=== PATIENT | female | born 1995 | race Caucasian/White ===

== ENCOUNTER 2016-05-31 08:56 | Emergency (ER) | payer OTHER ==
[2016-05-31 09:27] LABS: Blood, Urine Negative (Negative); Glucose, Urine (Dipstick) 100 mg/dL (Negative); Ketone, Urine 40 mg/dL (Negative); Nitrite Negative (Negative); Protein, Urine (Dipstick) 100 mg/dL (Neg-Trace); Urobilinogen > or = 8.0 mg/dL (0.2-1.0)
[2016-05-31 09:42] LABS: Bilirubin Negative (Negative)
[2016-05-31 09:43] LABS: RBC/HPF None Seen HPF (0-3)
[2016-05-31 09:44] LABS: Bacteria/HPF 2+ HPF (None Seen)
--- NOTE | 2016-05-31 10:07 | ERRECORD ---
[facility] EMERGENCY RECORD HPI HEMATURIA (:) CHIEF COMPLAINT: Patient presents for evaluation of hematuria. HISTORIAN: History provided by patient, c/o blood in urine, also with whole body aching. LOCATION: No localizing symptoms. SEVERITY: Maximum severity of symptoms mild. TIME COURSE: Gradual onset of symptoms. EXACERBATED BY: Patient's condition exacerbated by nothing. RELIEVED BY: Patient's condition relieved by nothing. ROS (:) CONSTITUTIONAL: Negative constitutional review of systems. EYES: Negative eye review of systems. ENT: Negative ears, nose, throat review of systems. CARDIOVASCULAR: Negative cardiovascular review of systems. RESPIRATORY: Negative respiratory review of systems. GI: Negative gastrointestinal review of systems. GENITOURINARY FEMALE: Negative genitourinary review of systems. MUSCULOSKELETAL: Negative musculoskeletal review of systems. SKIN: Negative skin review of systems. NEUROLOGIC: Negative neurologic review of systems. ENDOCRINE: Negative endocrine review of systems. NOTES: All systems reviewed, negative except as described above. PAST MEDICAL HISTORY (:05 MSPE) MEDICAL HISTORY: Flu vaccine not up to date, Tetanus immunization up to date, Pneumococcal vaccine not up to date, Past medical history includes hematological history, iron deficiency anemia. FEMALE SURGICAL HISTORY: Patient has no surgical history. PSYCHIATRIC HISTORY: Notes: depression and ADHD. SOCIAL HISTORY: Patient denies alcohol use, Patient denies drug use, Patient has no smoking history. KNOWN ALLERGIES No Known Drug Allergies CURRENT MEDICATIONS (09:06 MSPE) Vitamin: TABLET : ORAL Patient Dose: 1 tab(s) Oral once a day. VITAL SIGNS VITAL SIGNS: BP: 117/65, Pulse: 120, Resp: 18, Temp: 96.5 (Oral), Pain: 5, O2 sat: 97 on Room Air, Time: 05/31/2016 09:06. (09:06 MSPE) BP: 118/57, Pulse: 109, Resp: 16, Time: 05/31/2016 09:39. (09:39 MSPE) PHYSICAL EXAM (: SHAN) CONSTITUTIONAL: Patient afebrile, Pulse normal, Blood pressure normal, Respiratory rate normal, Patient appears non toxic, Patient &a-1R&a+25V*p+0X*n4733N*c152B*c15G*c2P*p-0X&a-25V&a+1RName: Taina Ruth DOB: 1995 F20 MedRec: [id number] AcctN: [id number] Prepared: Radha May 31, 2016 10:36 by Interface Page 1 of 3 pMD [facility] EMERGENCY RECORD appears pain free, Patient alert and oriented to person, place and time. HEAD: Head exam included findings of head atraumatic, normocephalic. EYES: Eye exam normal, Eye exam included findings of eyelids normal to inspection, Pupils equally round and reactive to light, Extraocular muscles intact. ENT: ENT exam normal, Pharynx exam normal, Uvula exam normal, Tonsil exam normal. NECK: Neck exam normal, Neck exam included findings of normal range of motion, Trachea midline. RESPIRATORY CHEST: Respiratory and chest exam normal, Chest exam included findings of chest movement symmetrical, Chest expansion equal, Percussion normal. CARDIOVASCULAR: Cardiovascular assessment normal, Cardiovascular exam included findings of heart rate regular rate and rhythm, Heart sounds normal. ABDOMEN FEMALE: Abdominal exam normal, Abdominal exam included findings of abdomen nontender, Bowel sounds normal, Gravid. BACK: Back exam normal. UPPER EXTREMITY: Upper extremity exam normal, Upper extremity exam included findings of inspection normal, Range of motion normal. LOWER EXTREMITY: Lower extremity exam normal, Lower extremity exam included findings of inspection normal, Range of motion normal. NEURO: Neuro exam normal. SKIN: Skin exam normal. PSYCHIATRIC: Psychiatric exam normal, Psychiatric exam included findings of patient oriented to person place and time, Normal affect, Judgment normal, Insight normal. DOCTOR NOTES (09:53 SHAN) TEXT: urine may be infected; culture set up; strept and flu negative; likely with viral infection also that family has had. DATA REVIEWED: Lab data reviewed. PROBLEM LIST No recorded problems DIAGNOSIS (09:54 SHAN) FINAL: PRIMARY: viral illness, ADDITIONAL: urinary tract infection. PRESCRIPTION (09:58 SHAN) Keflex: CAPSULE : 250 mg : ORAL : Quantity: 1 Unit: cap(s) Route: ORAL Schedule: 4 times a day Dispense: 28 Unit: cap(s) May substitute. Refills: No Refills . NOTES: No Refills. DISPOSITION PATIENT: Disposition Type: Discharge, Disposition: *Discharge &a-1R&a+25V*p+0X*c8480Q*c152B*c15G*c2P*p-0X&a-25V&a+1RName: Taina Ruth : 1995 F20 MedRec: [id number] AcctNum: [id number] Prepared: SatMay 31, 2016 10:36 by Interface Page 2 of 3 pMD [facility] EMERGENCY RECORD Home. (09:54 BANDAR) Patient left the department. (10:29 BAILEY) Melendez: BAILEY=LARY Chapman, Alva PORTILLO=MD Tee, Reza &a-1R&a+25V*p+0X*o9666A*c152B*c15G*c2P*p-0X&a-25V&a+1RName: Taina Ruth : 1995 F20 MedRec: [id number] AcctNum: [id number] Prepared: SatMay 31, 2016 10:36 by Interface Page 3 of 3 pMD MTDD
--- NOTE | 2016-05-31 10:13 | PICIS ---
[facility] EMERGENCY RECORD TRIAGE (09:03 MSPE) TRIAGE NOTES: body aches and dizziness since Saturday; also c/o blood in urine. (09:03 MSPE) PATIENT: NAME: Taina Ruth, AGE: 20, GENDER: female, : Sat 1995, TIME OF GREET: Radha May 31, 2016 08:57, PREFERRED LANGUAGE: Indian, ETHNICITY: Not or , ECODE BILLING MAP: [facility], SSN: [id number], Zip Code: [address], KG WEIGHT: 65.32, PHONE: , , , PERSON ID: [id number], PCP: Family Medicine, [place] [facility] and . (09:03 MSPE) COMPLAINT: BODY ACHES,BLOOD IN URINE/7 MON PREG. (09:03 MSPE) ADMISSION: URGENCY: 3 Urgent, ADMISSION SOURCE: Home, TRANSPORT: CAR, BED: ER -03. (09:03 MSPE) LMP: Last menstrual period: 11/28/2015, Estimated conception 12/12/2015, Estimated due date 09/03/2016, Estimated age 26 weeks, 3 days, , P: 1, AB: 0. (09:05 MSPE) TREATMENTS IN PROGRESS: Treatments given Prehospital: none. (09:05 MSPE) PROVIDERS: TRIAGE NURSE: Alva Chapman RN. (09:03 MSPE) PREVIOUS VISIT ALLERGIES: No Known Drug Allergies. (09:03 MSPE) No Known Drug Allergies. (09:05 MSPE) KNOWN ALLERGIES No Known Drug Allergies CURRENT MEDICATIONS (09:06 MSPE) Vitamin: TABLET : ORAL Patient Dose: 1 tab(s) Oral once a day. VITAL SIGNS VITAL SIGNS: BP: 117/65, Pulse: 120, Resp: 18, Temp: 96.5 (Oral), Pain: 5, O2 sat: 97 on Room Air, Time: 05/31/2016 09:06. (09:06 MSPE) BP: 118/57, Pulse: 109, Resp: 16, Time: 05/31/2016 09:39. (09:39 MSPE) NURSING ASSESSMENT: HEAD-TO-TOE (09:08 MSPE) CONSTITUTIONAL: Patient arrives ambulatory, Gait steady, History obtained from patient, Patient appears comfortable, Patient cooperative, Patient alert, Oriented to person, place and time, Skin warm, Skin dry. PAIN: c/o general body aches, Onset of pain 05/27/2016. ENT: Dizziness. RESPIRATORY/CHEST: Breath sounds clear, Associated with cough, Notes: c/o cough and congestion. GENITOURINARY FEMALE: Associated with urinary complaints, hematuria, , per patient, Last menstrual period started on 11/28/15, : 2, Para: 1, Elective abortions: 0, Spontaneous abortions: 0. &a-1R&a+25V*p+0X*w1151S*c152B*c15G*c2P*p-0X&a-25V&a+1RName: Taina Ruth : 1995 F20 MedRec: [id number] AcctNum: [id number] Prepared: [facility] May 31, 2016 10:42 by Interface Page 1 of 6 pMD [facility] EMERGENCY RECORD NURSING PROCEDURE: DISCHARGE NOTE (10:09 MSPE) DISCHARGE: Patient discharged to home, ambulating without assistance, Summary of Care printed/ provided, Discharge instructions given to patient, Simple or moderate discharge teaching performed, Prescriptions given and instructions on side effects given, Above person(s) verbalized understanding of discharge instructions and follow-up care, Patient treated and evaluated by physician. BELONGINGS: Belongings remain with patient. ORDER DETAILS Order Name: Culture, Urine, Status: Active, Time: 09:50 05/31/2016, User: BANDAR, - Ordered for: MD Oliveira Stanley, - Entered by: MD Oliveira Stanley - [facility] May 31, 2016 09:50, - Quantity: 1, Order Name: Influenza A&B Ag Screen, Status: Active, Time: 09:11 05/31/2016, User: BANDAR, - Ordered for: MD Oliveira Stanley, - Entered by: MD Oliveira Stanley - [facility] May 31, 2016 09:11, - Quantity: 1, Order Name: Strep Group A Screen, Status: Active, Time: 09:18 05/31/2016, User: BANDAR, - Ordered for: MD Oliveira Stanley, - Entered by: MD Oliveira Stanley - [facility] May 31, 2016 09:18, - Quantity: 1, Order Name: Urinalysis with Microscopic, Status: Active, Time: 09:08 05/31/2016, User: BANDAR, - Ordered for: MD Oliveira Stanley, - Entered by: MD Oliveira Stanley - [facility] May 31, 2016 09:08, - Quantity: 1. HPI HEMATURIA (: [facility]) CHIEF COMPLAINT: Patient presents for evaluation of hematuria. HISTORIAN: History provided by patient, c/o blood in urine, also with whole body aching. LOCATION: No localizing symptoms. SEVERITY: Maximum severity of symptoms mild. TIME COURSE: Gradual onset of symptoms. EXACERBATED BY: Patient's condition exacerbated by nothing. RELIEVED BY: Patient's condition relieved by nothing. ROS (: [facility]) CONSTITUTIONAL: Negative constitutional review of systems. EYES: Negative eye review of systems. ENT: Negative ears, nose, throat review of systems. CARDIOVASCULAR: Negative cardiovascular review of systems. RESPIRATORY: Negative respiratory review of systems. GI: Negative gastrointestinal review of systems. GENITOURINARY FEMALE: Negative genitourinary review of systems. &a-1R&a+25V*p+0X*i9826Q*c152B*c15G*c2P*p-0X&a-25V&a+1RName: Taina Ruth : 1995 F20 MedRec: [id number] AcctNum: [id number] Prepared: [facility] May 31, 2016 10:42 by Interface Page 2 of 6 pMD [facility] EMERGENCY RECORD MUSCULOSKELETAL: Negative musculoskeletal review of systems. SKIN: Negative skin review of systems. NEUROLOGIC: Negative neurologic review of systems. ENDOCRINE: Negative endocrine review of systems. NOTES: All systems reviewed, negative except as described above. PAST MEDICAL HISTORY (: MSPE) MEDICAL HISTORY: Flu vaccine not up to date, Tetanus immunization up to date, Pneumococcal vaccine not up to date, Past medical history includes hematological history, iron deficiency anemia. FEMALE SURGICAL HISTORY: Patient has no surgical history. PSYCHIATRIC HISTORY: Notes: depression and ADHD. SOCIAL HISTORY: Patient denies alcohol use, Patient denies drug use, Patient has no smoking history. PHYSICAL EXAM (09:12 SHAN) CONSTITUTIONAL: Patient afebrile, Pulse normal, Blood pressure normal, Respiratory rate normal, Patient appears non toxic, Patient appears pain free, Patient alert and oriented to person, place and time. HEAD: Head exam included findings of head atraumatic, normocephalic. EYES: Eye exam normal, Eye exam included findings of eyelids normal to inspection, Pupils equally round and reactive to light, Extraocular muscles intact. ENT: ENT exam normal, Pharynx exam normal, Uvula exam normal, Tonsil exam normal. NECK: Neck exam normal, Neck exam included findings of normal range of motion, Trachea midline. RESPIRATORY CHEST: Respiratory and chest exam normal, Chest exam included findings of chest movement symmetrical, Chest expansion equal, Percussion normal. CARDIOVASCULAR: Cardiovascular assessment normal, Cardiovascular exam included findings of heart rate regular rate and rhythm, Heart sounds normal. ABDOMEN FEMALE: Abdominal exam normal, Abdominal exam included findings of abdomen nontender, Bowel sounds normal, Gravid. BACK: Back exam normal. UPPER EXTREMITY: Upper extremity exam normal, Upper extremity exam included findings of inspection normal, Range of motion normal. LOWER EXTREMITY: Lower extremity exam normal, Lower extremity exam included findings of inspection normal, Range of motion normal. NEURO: Neuro exam normal. SKIN: Skin exam normal. PSYCHIATRIC: Psychiatric exam normal, Psychiatric exam included findings of patient oriented to person place and time, Normal affect, Judgment normal, Insight normal. EVENTS TRANSFER: Triage to Emergency Emergency Room -03. (Radha May 31, &a-1R&a+25V*p+0X*p0455S*c152B*c15G*c2P*p-0X&a-25V&a+1RName: Taina Ruth : 1995 F20 MedRec: [id number] AcctNum: [id number] Prepared: SatMay 31, 2016 10:42 by Interface Page 3 of 6 pMD [facility] EMERGENCY RECORD 2017 09:03 MSPE) Removed from Emergency Emergency Room -03. (10:29 MSPE) DOCTOR NOTES (09:53 SHAN) TEXT: urine may be infected; culture set up; strept and flu negative; likely with viral infection also that family has had. DATA REVIEWED: Lab data reviewed. PROBLEM LIST No recorded problems DIAGNOSIS (09:54 SHAN) FINAL: PRIMARY: viral illness, ADDITIONAL: urinary tract infection. DISPOSITION PATIENT: Disposition Type: Discharge, Disposition: *Discharge Home. (09:54 SHAN) Patient left the department. (10:29 MSPE) INSTRUCTION (:59 SHAN) DISCHARGE: URINARY TRACT INFECTION CYSTITIS FEMALE ADULT, VIRAL SYNDROME (ADULT). FOLLOWUP: Family Medicine, [facility], [facility], [address], [address], [place] [address], [phone]. SPECIAL: 1. rest 2. Tylenol if needed 3. antibiotic four times a day until gone 4. followup with provider in about a week; 5. return here is problem worsens. PRESCRIPTION (:58 SHAN) Keflex: CAPSULE : 250 mg : ORAL : Quantity: 1 Unit: cap(s) Route: ORAL Schedule: 4 times a day Dispense: 28 Unit: cap(s) May substitute. Refills: No Refills . NOTES: No Refills. IMAGING (10:18 MSPE) *DISCHARGE INSTRUCTIONS RECEIPT: Image captured from scanner. *SUPPLY CHARGE SHEET: Image captured from scanner. ADMIN (:) DIGITAL SIGNATURE: MD Tee, Reza. RESULTS MICROBIOLOGY: Influenza A&B Ag Screen: [id number] Collection DT: SatMay 31, 2016 09:40, See comment below , @ ER ROOM#: ER-03 Source: Nasal swab Spec Desc: , &a-1R&a+25V*p+0X*y7065T*c152B*c15G*c2P*p-0X&a-25V&a+1RName: Taina Ruth : 1995 F20 MedRec: [id number] AcctNum: [id number] Prepared: SatMay 31, 2016 10:42 by Interface Page 4 of 6 pMD [facility] EMERGENCY RECORD Influenza A Antigen: NEGATIVE for the , presence of , INFLUENZA A Antigen , Influenza B Antigen: NEGATIVE for the , presence of , INFLUENZA B Antigen , The rapid Flu A&B test can distinguish between influenza A , Influenza A&B Ag Screen See comment below , and B viruses, but it does not differentiate influenza , Influenza A&B Ag Screen See comment below , subtypes. , Influenza A&B Ag Screen See comment below , Influenza A&B Ag Screen See comment below , Influenza A&B Ag Screen See comment below , Influenza A&B Ag Screen See comment below , characteristics of this device with human specimens infected , Influenza A&B Ag Screen See comment below , with the 2008 H1N1 influenza virus have not been , Influenza A&B Ag Screen See comment below , established. For example: this test cannot distinguish , Influenza A&B Ag Screen See comment below , influenza infections caused by novel H1N1 influenza A , Influenza A&B Ag Screen See comment below , viruses versus seasonal influenza A viruses. , Influenza A&B Ag Screen See comment below , , Influenza A&B Ag Screen See comment below , A negative result does not exclude influenza virus , Influenza A&B Ag Screen See comment below , infection; therefore, if more conclusive testing is desired, , Influenza A&B Ag Screen See comment below , follow up confirmatory testing is warranted., Influenza A&B Ag Screen See comment below . (09:43 [facility]) Strep Group A Screen: [id number] Collection DT: SatMay 31, 2016 09:33, See comment below , @ ER ROOM#: ER-03 Source: Throat Spec Desc: PENDING, Strep A Negative CDC recommends , confirmation by , culture on all , negative , Strep negative line 1 Group A , Streptococcus rapid , screens. Please , order , Strep negative line 2 a throat culture if , clinically , indicated. , Rapid Strep Screen:Throat Negative . (09:49 [facility]) LABORATORY: Urinalysis with Microscopic Collection DT: SatMay 31, 2016 09:41, Color Yellow , Range (Yellow), &a-1R&a+25V*p+0X*k4079K*c152B*c15G*c2P*p-0X&a-25V&a+1RName: Taina Ruth : 1995 F20 MedRec: [id number] AcctNum: [id number] Prepared: SatMay 31, 2016 10:42 by Interface Page 5 of 6 pMD [facility] EMERGENCY RECORD Clarity Slightly Cloudy , Range (Clear), Specific [place], Urine 1.030 , Range (1.002-1.036), pH, Urine 6.0 , Range (5.0-9.0), *Leukocyte Large - H , Range (Negative), Nitrite Negative , Range (Negative), *Protein, Urine (Dipstick) 100 - H mg/dL, Range (Neg-Trace), *Glucose, Urine (Dipstick) 100 - H mg/dL, Range (Negative), *Ketone, Urine 40 - H mg/dL, Range (Negative), *Urobilinogen > or = 8.0 - H mg/dL, Range (0.2-1.0), Bilirubin Negative , Range (Negative), , Blood, Urine Negative , Range (Negative), RBC/HPF None Seen HPF, Range (0-3), *WBC/HPF 11-20 - H HPF, Range (0-3), *Squamous Epithelial 7-10 - H HPF, Range (0-3), *Bacteria/HPF 2+ - H HPF, Range (None Seen). (09:49 BANDAR) Melendez: BAILEY=LARY Chapman, Alva PORTILLO=MD Tee, Reza &a-1R&a+25V*p+0X*c5883W*c152B*c15G*c2P*p-0X&a-25V&a+1RName: Taina Ruth : 1995 F20 MedRec: [id number] AcctNum: [id number] Prepared: Radha May 31, 2016 10:42 by Interface Page 6 of 6 pMD MTDD
== END 2016-05-31 10:09 | disposition home or self-care (01) ==
LOC: NAV ERS 08:56
DX: O23.42 Unspecified infection of urinary tract in pregnancy, second trimester (principal); O98.512 Other viral diseases complicating pregnancy, second trimester
CPT/HCPCS: 81001; 87430; 99283

== ENCOUNTER 2018-09-11 20:21 | Emergency (ER) | payer OTHER | END 2018-09-11 20:53 | disposition home or self-care (01) | LOC: NAV ERS 20:21 | DX: M67.431 Ganglion, right wrist (principal); D50.9 Iron deficiency anemia, unspecified; F32.9 Major depressive disorder, single episode, unspecified; F90.9 Attention-deficit hyperactivity disorder, unspecified type | CPT/HCPCS: 99282 ==

== ENCOUNTER 2018-11-26 16:23 | Emergency (ER) | payer OTHER ==
[2018-11-26 17:07] LABS: #Basophils 0.1 thou/uL (0.0-0.2); #Eosinphils 0.1 thou/uL (0.0-0.7); #Lymphocytes 1.7 thou/uL (1.20-3.40); #Monocytes 0.8 thou/uL (0.11-0.59); #Neutrophils 7.9 thou/uL (1.40-6.50); %Basophils 0.8 % (0.0-1.0); %Eosinophils 1.1 % (0.0-10.0); %Lymphocytes 15.8 % (21.0-51.0); %Monocytes 7.7 % (0.0-10.0); %Neutrophils 74.6 % (42.0-75.0); Bilirubin Negative (Negative); Blood, Urine Negative (Negative); Clarity Slightly Cloudy (Clear); Glucose, Urine (Dipstick) Negative (Negative); Hemoglobin 12.3 g/dL (12.0-16.0); Leukocyte Trace (Negative); Mean Corpuscular HGB CONC 32.1 g/dL (32.0-36.0); Mean Corpuscular Volume 84.1 fL (78.0-98.0); Mean Platelet Volume 7.3 fL (7.4-10.4); Nitrite Negative (Negative); Platelet Count 239 thou/uL (130-400); Protein, Urine (Dipstick) Negative (Neg-Trace); RBC Distribution Width 13.6 % (11.5-14.5); Red Blood Cell (RBC) Count 4.54 mill/uL (4.20-5.40); Urobilinogen 0.2 mg/dL (Less than 2); White Blood Cell (WBC) Count 10.6 thou/uL (4.8-10.8)
[2018-11-26] MEDS ORDERED: Lactated Ringer's 1,000 ML ONE (17:09)
[2018-11-26 17:18] LABS: ALT (SGPT) 10 U/L (8-55); AST (SGOT) 18 U/L (5-34); Albumin 3.5 g/dL (3.5-5.0); Alkaline Phosphatase 57 U/L (40-150); Anion Gap 15 mmol/L (10-20); BUN (Urea Nitrogen) 7 mg/dL (7.0-18.7); Bilirubin, Total 0.2 mg/dL (0.2-1.2); Calc. Creatinine Clearance 0 mL/min (70-130); Carbon Dioxide 22 mmol/L (22-29); Chloride 104 mmol/L (98-107); Estimated GFR-MDRD Greater than 90; Globulin 2.9 g/dL (2.4-3.5); Glucose 109 mg/dL (70-105); Potassium 3.5 mmol/L (3.5-5.1); Protein, Total 6.4 g/dL (6.0-8.3); Sodium 137 mmol/L (136-145)
[2018-11-26 17:21] LABS: Bacteria/HPF 1+ HPF (None Seen); RBC/HPF 0-3 HPF (0-3); WBC/HPF 0-3 HPF (0-3)
== END 2018-11-26 17:53 | disposition short-term general hospital (02) ==
LOC: NAV ERS 16:23
DX: O99.89 Other specified diseases and conditions complicating pregnancy, childbirth and the puerperium (principal); R10.9 Unspecified abdominal pain; O99.343 Other mental disorders complicating pregnancy, third trimester; F90.9 Attention-deficit hyperactivity disorder, unspecified type; F32.9 Major depressive disorder, single episode, unspecified; Z3A.28 28 weeks gestation of pregnancy; W19.XXXA Unspecified fall, initial encounter
CPT/HCPCS: 80053; 81003; 81015; 85025; 86900; 86901; J7120

== ENCOUNTER 2019-06-11 12:23 | Emergency (ER) | payer OTHER, SELFPAY ==
[2019-06-11] MEDS ORDERED: Adacel (T-DAP) 0.5 ML SYRINGE ONE (12:48)
== END 2019-06-11 12:58 | disposition home or self-care (01) ==
LOC: NAV ERS 12:23
DX: S61.212A Laceration without foreign body of right middle finger without damage to nail, initial encounter (principal); F32.9 Major depressive disorder, single episode, unspecified; F90.9 Attention-deficit hyperactivity disorder, unspecified type; D50.9 Iron deficiency anemia, unspecified; Z23 Encounter for immunization; W25.XXXA Contact with sharp glass, initial encounter; Y92.009 Unspecified place in unspecified non-institutional (private) residence as the place of occurrence of the external cause
CPT/HCPCS: 12001; 90471; 90715

== ENCOUNTER 2019-12-18 20:33 | Emergency (ER) | payer SELFPAY ==
--- NOTE | 2019-12-18 21:43 | RAD ---
LEFT HIP: 12/18/19 Two views. HISTORY: Fall. FINDINGS: No evidence of fracture. No osseous abnormality identified. IMPRESSION: No acute findings. POS: SYLVESTERW
--- NOTE | 2019-12-18 21:44 | RAD ---
AP PELVIS: 12/18/19 HISTORY: Injury. Pelvis appears intact. No fracture identified. IMPRESSION: No acute fracture. POS: AGW
--- NOTE | 2019-12-18 21:45 | RAD ---
LEFT KNEE: 12/18/19 Four views. HISTORY: Injury. No evidence of fracture. No evidence of joint effusion. IMPRESSION: No acute findings. POS: AGW
[2019-12-18] MEDS ORDERED: traMADol HCl 50 MG TAB ONE (21:49)
[2019-12-18] MEDS ORDERED: Naproxen 500 MG TAB ONE (21:49)
== END 2019-12-18 22:00 | disposition home or self-care (01) ==
LOC: NAV ERS 20:33
DX: S80.02XA Contusion of left knee, initial encounter (principal); M25.552 Pain in left hip; F41.9 Anxiety disorder, unspecified; F17.210 Nicotine dependence, cigarettes, uncomplicated; D50.9 Iron deficiency anemia, unspecified; W01.0XXA Fall on same level from slipping, tripping and stumbling without subsequent striking against object, initial encounter
CPT/HCPCS: 72170

== ENCOUNTER 2023-07-28 11:13 | Emergency (ER) | payer MEDICAID, SELFPAY ==
[2023-07-28] MEDS ORDERED: Prochlorperazine 10 MG/2 ML VIAL ONE (11:41)
[2023-07-28] MEDS ORDERED: diphenhydrAMINE 50 MG/ML VIAL ONE (11:41)
[2023-07-28] MEDS ORDERED: Sodium Chloride 0.9% 250 ML 250 ML ONE (11:41)
[2023-07-28 11:51] LABS: #Basophils 0.1 thou/uL (0.0-0.2); #Eosinphils 0.1 thou/uL (0.0-0.7); #Lymphocytes 1.5 thou/uL (1.20-3.40); #Monocytes 0.7 thou/uL (0.11-0.59); #Neutrophils 4.8 thou/uL (1.40-6.50); %Basophils 1.2 % (0.0-1.0); %Eosinophils 1.5 % (0.0-10.0); %Lymphocytes 20.7 % (21.0-51.0); %Monocytes 9.4 % (0.0-10.0); %Neutrophils 67.2 % (42.0-75.0); Hemoglobin 11.9 g/dL (12.0-16.0); Mean Corpuscular Hemoglobin 25.7 pg (27.0-31.0); Mean Corpuscular Volume 80.3 fl (78.0-98.0); Mean Platelet Volume 7.3 fL (7.4-10.4); Platelet Count 279 10x3/uL (130-400); RBC Distribution Width 13.9 % (11.5-14.5); Red Blood Cell (RBC) Count 4.61 mill/uL (4.20-5.40); White Blood Cell (WBC) Count 7.2 10x3/uL (4.8-10.8)
[2023-07-28 12:13] LABS: ALT (SGPT) 11 U/L (8-55); AST (SGOT) 15 U/L (5-34); Albumin 4.1 g/dL (3.5-5.0); Alkaline Phosphatase 55 U/L (40-110); Anion Gap 12 mmol/L (10-20); BUN (Urea Nitrogen) 9 mg/dL (7.0-18.7); Bilirubin, Total 0.8 mg/dL (0.2-1.2); Calc. Creatinine Clearance 0 mL/min (70-130); Calcium 8.9 mg/dL (7.8-10.44); Carbon Dioxide 25 mmol/L (22-29); Chloride 104 mmol/L (98-107); Estimated GFR 124; Globulin 3.1 g/dL (2.4-3.5); Glucose 91 mg/dL (70-105); Potassium 3.6 mmol/L (3.5-5.1); Protein, Total 7.2 g/dL (6.0-8.3); Sodium 137 mmol/L (136-145)
[2023-07-28 12:35] LABS: Influenza A by NAA Not Detected (NotDetected); Influenza B by NAA Not Detected (NotDetected); SARS-CoV-2 NAA Rapid Test Not Detected (NotDetected)
== END 2023-07-28 13:30 | disposition home or self-care (01) ==
LOC: NAV ERS 11:13
DX: K92.0 Hematemesis (principal); F17.210 Nicotine dependence, cigarettes, uncomplicated
CPT/HCPCS: 80053; 85025; 96365; 96375; J0780; J1200; J7050

== ENCOUNTER 2023-11-20 09:40 | Emergency (ER) | payer OTHER ==
[2023-11-20] MEDS ORDERED: Ibuprofen 800 MG TAB ONE (10:05)
== END 2023-11-20 10:08 | disposition home or self-care (01) ==
LOC: NAV ERS 09:40
DX: M54.6 Pain in thoracic spine (principal); F17.210 Nicotine dependence, cigarettes, uncomplicated
CPT/HCPCS: 99283

== ENCOUNTER 2024-02-04 07:20 | Emergency (ER) | payer OTHER | END 2024-02-04 08:41 | disposition home or self-care (01) | LOC: NAV ERS 07:20 | DX: J02.9 Acute pharyngitis, unspecified (principal); F17.210 Nicotine dependence, cigarettes, uncomplicated | CPT/HCPCS: 87081; 87430; 99283 ==

== ENCOUNTER 2024-03-03 14:14 | Emergency (ER) | payer OTHER, SELFPAY ==
[~2024-03-03 14:14] MED LIST: Iopamidol 370 76% 100 ML VIAL ONE
[2024-03-03] MEDS ORDERED: Ketorolac Tromethamine 30 MG (1 mL) VIAL ONE (14:52)
[2024-03-03 15:02] LABS: #Basophils 0.1 thou/uL (0.0-0.2); #Eosinophils 0.2 thou/uL (0.0-0.7); #Lymphocytes 1.9 thou/uL (1.20-3.40); #Monocytes 1.1 thou/uL (0.11-0.59); #Neutrophils 7.8 thou/uL (1.40-6.50); %Basophils 0.7 % (0.0-1.0); %Eosinophils 1.5 % (0.0-10.0); %Lymphocytes 17.2 % (21.0-51.0); %Monocytes 9.6 % (0.0-10.0); Hematocrit 40.5 % (36.0-47.0); Hemoglobin 13.3 g/dL (12.0-16.0); Mean Corpuscular HGB CONC 32.9 g/dL (32.0-36.0); Mean Corpuscular Hemoglobin 27.5 pg (27.0-31.0); Mean Corpuscular Volume 83.6 fl (78.0-98.0); Mean Platelet Volume 7.5 fL (7.4-10.4); Platelet Count 356 10x3/uL (130-400); RBC Distribution Width 12.2 % (11.5-14.5); Red Blood Cell (RBC) Count 4.85 mill/uL (4.20-5.40)
[2024-03-03 15:57] LABS: Anion Gap 16 mmol/L (10-20); BUN (Urea Nitrogen) 13 mg/dL (7.0-18.7); Calc. Creatinine Clearance 0 mL/min (70-130); Calcium 9.9 mg/dL (7.8-10.44); Carbon Dioxide 23 mmol/L (22-29); Chloride 103 mmol/L (98-107); Estimated GFR 120; Glucose 84 mg/dL (70-105); Potassium 3.2 mmol/L (3.5-5.1); Sodium 139 mmol/L (136-145)
[2024-03-03] MEDS ORDERED: fentaNYL 50 mcg/mL 1 mL Vial ONE (16:45)
== END 2024-03-03 16:05 | disposition home or self-care (01) ==
LOC: NAV ERS 14:14
DX: K04.7 Periapical abscess without sinus (principal); F17.210 Nicotine dependence, cigarettes, uncomplicated
CPT/HCPCS: 70487; 80048; 85025; 96374; 96375; J1885; J3010; Q9967

== ENCOUNTER 2024-05-29 21:12 | Emergency (ER) | payer OTHER ==
[2024-05-29] MEDS ORDERED: Ondansetron ODT 4 MG TAB ONE (21:19)
== END 2024-05-29 22:10 | disposition home or self-care (01) ==
LOC: NAV ERS 21:12
DX: B34.9 Viral infection, unspecified (principal); R11.2 Nausea with vomiting, unspecified; F17.290 Nicotine dependence, other tobacco product, uncomplicated
CPT/HCPCS: 87428; 99284; Q0162